=== PATIENT | male | born 1970 | race African-American/Black ===

== ENCOUNTER 2022-11-23 10:51 | Outpatient (AMB) | payer OTHER, SELFPAY ==
[2022-11-23 11:12] VITALS: BP 108/68; PULSE 97; RESP 12; TEMP 36.4; O2SAT 99; BMI 20.3
--- NOTE | 2022-11-23 11:12 | MHC.PC.OV ---
Vital Signs 11/23/22 11:12 Height 6 ft 2 in Weight 158 lb BMI 20.3 BP 108/68 Blood Pressure Location Lt brachial Position Sitting Respiration 12 Pulse 97 Pulse Source Pulse Oximeter Temp 97.5 F Temp Source Temporal Artery Scan Pulse Oximetry (%) 99 Oxygen Delivery Method Room Air Intake Visit Reasons: New patient-requesting physical Intake Note: Patient states that he was seen at [facility] for lower back pain, Patient states that he was told that he is missing the tissue inbetween the joints. Patient is currently seeing PT and PT states that it is more of a muscle problem but patient states otherwise. Patient's states that she noticed that patient has been more down and not himself due to the back pain holding him back and restricting him from from doing day to day activities. Patient states that he also has blood in stool. Patients states that his stool has been really loose and that patient uses the bathroom frequently. Patient states that when he is laying down the pain travels to his chest. Patient states that he has been experiencing hot flashes even when in the AC and has to take a cool shower just to cool down. Patient is also interested in stopping his smoking habit. [employer] Interpreter Required: No Accompanied by: Spouse Allergies lactose Adverse Reaction (Intermediate, Verified 11/23/22 11:45) Gastrointestinal Upset Medication List - Last Reconciled 11/23/22 by Diana Cronin CNP lidocaine HCl 4% 1 patch topical TID PRN meloxicam submicronized 5 mg PO DAILY Tobacco use date assessed: 11/23/22 Dental Screening Dental Screen Date: 11/23/22 Did you have a dental visit in the last 12 months?: No Did you have a dental problem in the last 6 months where you did not have access to dental care?: No Was dental information given to patient?: Yes HPI HPI Comments History of Present Illness Details 52-year-old male presents to [facility] care. He notes he has been seen by a PCP in the past 15 years. He states his last blood work was 8-9 years ago. He has past medical history significant for chronic low back pain. He notes the pain is intermittent and has been present for the past 8 years. 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 He denies injury, fall, or trauma. No tingling, numbness, loss of sensation, or loss of bowel or bladder functions. He was evaluated and treated at [facility] for back pain on 10/18/2022. X-ray revealed L5-S1 anterolisthesis. He started physical therapy 2 weeks ago and has been going twice weekly. He is scheduled to have 6 weeks of physical therapy. He denies formal diagnosis of anxiety and depression but admits to feeling anxious and depressed. He reports occasional dark red blood in his stool with associated abdominal pain for the past 4 years. He reports loose stool. He reports occasional constipation. He notes he started drinking alcohol heavily at age 11 and stopped a year ago. He reports history of cigarette smoking for several years and notes he currently smokes 15 cigarettes daily. He states he has never had colonoscopy. [facility] Medical History (Updated 11/23/22 @ 14:31 by Diana Cronin CNP) Back disorder Depression High blood pressure Surgical History (Updated 11/23/22 @ 11:31 by Talisha Maier MA) No pertinent past surgical history Family History (Updated 11/23/22 @ 11:37 by Talisha Maier MA) Sister High blood pressure Diabetes Social History Housing: Apartment Patient Tobacco Use Status: Current everyday Tobacco user Cigarette Packs Per Day: 1 Cigarettes Per Day: 15 Years Smoked: 29 e-Cigarette/Vaping Use: Never Used service: No Current occupational status: unemployed Cognitive needs: No Hearing needs: No Vision needs: No Questionnaire PHQ-9 Over the last 2 weeks, how often have you been bothered by any of the following problems? 1. Little interest or pleasure in doing things: several days 2. Feeling down, depressed, or hopeless: not at all 3. Trouble falling or staying asleep, or sleeping too much: nearly every day 4. Feeling tired or having little energy: nearly every day 5. Poor appetite or overeating: not at all 6. Feeling bad about yourself - or that you are a failure or have let yourself or your family down: nearly every day 7. Trouble concentrating on things, such as reading the newspaper or watching television: several days 8. Moving or speaking so slowly that other people could have noticed. Or the opposite - being so fidgety or restless that you have been moving around a lot more than usual: not at all 9. Thoughts that you would be better off or of hurting yourself in some way: not at all Total score: 11 Depression Screening Interpretation: Positive Depression Screening Follow-up: Existing condition and New Medication prescribed Source: Developed by Drs. Percy Hallman, Virgie Bowen, Leonardo Hernandez and colleagues, with an educational radha from [employer]. Thrive Questionnaire Date Thrive assessed: 11/23/22 I am a: Patient What is your living situation today?: I have a steady place to live Within the past 12 months, did the food you bought not last and you didn't have the money to get more?: Sometimes True Within the past 12 months, did you worry whether your food would run out before you got money to buy more?: Sometimes True Do you have trouble paying for medicines?: Yes Do you have trouble getting transportation to medical appointments?: No Do you have trouble paying your heating and electricity bill?: Yes Do you have trouble taking care of your child, family member or friend?: No Do you have trouble with day-to-day activities such as bathing, preparing meals, shopping, managing finances, etc.?: No Are you currently unemployed and looking for a job?: No Are you interested in more education?: No Please select the resources that you would like help with: Food, Paying for medicine and Utilities Currently or been in a relationship where the following occur: no concerns reported AUDIT C Alcohol Use Questionnaire (AUDIT-C) 1. How often do you have a drink containing alcohol?: Never 3. How often do you have six or more drinks on one occasion?: Never Total Score: 0 NICHOLE-7 AMB Questionnaire NICHOLE-7 Date NICHOLE - 7 assessed: 11/23/22 Feeling nervous, anxious, or on edge: 1 = Several days Not being able to stop or control worryin = Several days Worrying too much about different things: 1 = Several days Trouble relaxin = Several days Being so restless that it is hard to sit still: 0 = Not at all Becoming easily annoyed or irritable: 1 = Several days Feeling afraid as if something awful might happen: 0 = Not at all Total NICHOLE-7 score (0-4 normal; 5-9 mild; 10-14 moderate; 15-21 severe): 5 Source: Developed by Virgie Francis, Leonardo Hernandez and colleagues, with an educational radha from [employer]. Review of Systems Const Details: Const Denies chills, Denies fatigue, Denies fever(s), Denies headache(s) and Denies weakness ENT Denies dizziness and Denies headache(s) Card Denies chest pain, Denies lightheadedness, Denies dyspnea and Denies other (Palpitations) Resp Denies cough, Denies dyspnea, Denies wheezing and Denies other ( shortness of breath) GI Reports abdominal pain, reports bloody stool, Denies hematochezia, Denies change in bowel habits, Denies dyspepsia and Denies nausea Denies hematuria and Denies dysuria Musc Reports as per HPI Skin/Breast Denies rash, Denies unusual bruising and Denies wounds Neuro Denies abnormal gait, Denies dizziness, Denies headache(s), Denies memory loss, Denies numbness, Denies Sensory deficit (Neuro), Denies tingling and Denies weakness Psych Reports anxiety, reports depression, Denies memory loss Endo Denies cold intolerance, Denies fatigue, Denies heat intolerance, Denies polydipsia and Denies polyuria Aller/Immun Denies wheezing Physical exam (Primary Care) Vital Signs: Last Vital Signs Temp 97.5 F 11/23/22 11:12 Pulse 97 11/23/22 11:12 Resp 12 11/23/22 11:12 BP 108/68 11/23/22 11:12 Pulse Ox 99 11/23/22 11:12 Oxygen Delivery Method Room Air 11/23/22 11:12 BMI result Body Mass Index 20.3 Tobacco/Smoking Status: Tobacco use Status Tobacco use date assessed 11/23/22 11/23/22 11:36 Patient Tobacco Use Status Current everyday Tobacco 11/23/22 11:36 e-Cigarette/Vaping Use Never Used 11/23/22 11:36 PHQ-9: PHQ-9 Score PHQ-9: Total score 11 11/23/22 11:36 Depression Screening Interpretation: Positive Depression Screening Follow-up: Existing condition and New Medication prescribed Thrive Assessment: Date of Thrive Assessment Date Thrive assessed 11/23/22 11/23/22 11:36 Currently or been in a relationship where the following occur: no concerns reported Const Other: General: no acute distress and well developed Nutritional Appearance: well nourished Orientation/consciousness: patient oriented x3 [facility] Head: Yes normocephalic and Yes atraumatic Eyes General: appearance normal, both eyes and all related structures Pupils: Equal, round and reactive pupils present EOM: EOMs intact bilaterally Resp Effort & Inspection: normal respiratory effort Auscultation: clear to auscultation bilaterally Cardio Rate: regular rate Rhythm: regular rhythm Heart sounds: S1 normal heart sound present, S2 normal heart sound present, no gallops, no murmurs and no rubs GI Palpation (GI): No Abdominal aortic bruit present, Soft to palpation, tender epigastric region, No hepatosplenomegaly present and No Rebound tenderness present Auscultation: normal bowel sounds General: Yes no CVA tenderness Back/Spine/Pelvis Back: no CVA tenderness Cervical Spine: cervical ROM normal and No Cervical spine tenderness Thoracic/Lumbar Spine: thoraco-lumbar ROM normal, No pain with thoraco-lumbar ROM, No thoracic spinal tenderness and lumbar spinal tenderness Extrem General: Yes normal to inspection, No edema and No calf tenderness Skin General: warm and dry. Normal skin color. Normal skin turgor Lesions: no lesions Rashes: no rashes Trauma: no lacerations or abrasions Wounds: no wounds Nails: normal Neuro General: patient oriented x3, gait normal and no focal neuro deficit Cranial nerves: Yes Equal, round and reactive pupils present Cognition (Neuro): normal cognition Gait exam (Neuro): Normal gait present Sensory Exam: No Sensory deficit (Neuro) Psych Appearance: grossly normal Affect: normal affect Attitude: cooperative Thought process: Normal thought process present Assessment and Plan Assessment & Plan (1) Chronic low back pain: Code(s): M54.50 - Low back pain, unspecified; G89.29 - Other chronic pain Plan: X-ray from outside facility revealed L5-S1 anterolisthesi Lumbar spinal tenderness Duloxetine ordered. Take as prescribed Continue with physical therapy Warm/cool compresses encouraged Referred to Ortho Follow-up in 1 month or return sooner with worsening or new symptoms Verbalized understanding and agreed with treatment plan. (2) Anxiety and depression: Code(s): F41.9 - Anxiety disorder, unspecified; F32.A - Depression, unspecified Plan: PHQ-9 and NICHOLE-7 scores revealed moderate depression and mild anxiety respectively Anxiety and depression symptoms may be attributed to chronic pain Duloxetine ordered. Take as prescribed Advised to stop taking gabapentin Follow-up within 1 month Return sooner with worsening or new symptoms Verbalized understanding and agreed with treatment plan (3) Abdominal pain: Code(s): R10.9 - Unspecified abdominal pain Plan: Reports occasional dark red blood in his stool with associated abdominal pain for the past 4 years. He reports loose stool. He reports occasional constipation. Pain to palpation of the epigastric region, likely muscular pain although gastritis is possible Differential diagnosis for bloody stool includes constipation, hemorrhoids, Crohn's disease, ulcerative colitis, and colon cancer Omeprazole ordered. Take as prescribed Advised to stop taking meloxicam to prevent worsening GI bleed Adequate hydration in healthy diet including fruits and vegetables encouraged to prevent constipation. May also increase fiber in his diet Referred to GI Colonoscopy referral made Return with new or worsening symptoms Verbalized understanding and agreed with treatment plan. (4) Bloody stools: Code(s): K92.1 - Melena Plan: As above (5) Constipation: Code(s): K59.00 - Constipation, unspecified Plan: As above (6) Colon cancer screening: Code(s): Z12.11 - Encounter for screening for malignant neoplasm of colon Plan: He states he has never had colonoscopy Colonoscopy referral made (7) Laboratory tests ordered as part of a complete physical exam (CPE): Code(s): Z00.00 - Encounter for general adult medical examination without abnormal findings Plan: Fasting labs ordered as part of a complete physical exam. Advised to fast for at least 10 hours before getting labs drawn. May drink water Verbalized understanding and agreed with treatment plan. Orders: Orders Comprehensive [place]. Panel Fast Today Z00.00 - Encounter for general adult medical examination without abnormal findings Lipid Panel Today Z00.00 - Encounter for general adult medical examination without abnormal findings PSA, Ultra Sensitive Today Z00.00 - Encounter for general adult medical examination without abnormal findings TSH reflex Free T4 Today Z00.00 - Encounter for general adult medical examination without abnormal findings Complete Blood Count Auto Diff Today Z00.00 - Encounter for general adult medical examination without abnormal findings UA CC w/rflx Micro + Cult Today Z00.00 - Encounter for general adult medical examination without abnormal findings Referrals Orthopedics Referral G89.29 - Other chronic pain, M54.50 - Low back pain, unspecified Medications: New duloxetine 60 mg PO DAILY 30 days 30 caps 2RF lidocaine 5% leave on most painful area for up to 12 hrs 1 patch topical DAILY 15 ea 0RF Coding Level of Care Code New Pt Level 4 (03957) Diagnoses Chronic low back pain M54.50; G89.29 Anxiety and depression F41.9; F32.A Abdominal pain R10.9 Bloody stools K92.1 Constipation K59.00 Colon cancer screening Z12.11 Laboratory tests ordered as part of a complete physical exam (CPE) Z00.00
== END 2022-11-23 12:26 | disposition home or self-care (01) ==
PROVIDERS: PCP Nurse Practitioner Family; Visit Provider Nurse Practitioner Family
DX: M54.50 Low back pain, unspecified (principal); G89.29 Other chronic pain; F41.9 Anxiety disorder, unspecified; F32.A Depression, unspecified; R10.9 Unspecified abdominal pain; K92.1 Melena; K59.00 Constipation, unspecified; Z12.11 Encounter for screening for malignant neoplasm of colon; Z00.00 Encounter for general adult medical examination without abnormal findings
CPT/HCPCS: 99204

== ENCOUNTER 2022-12-26 09:37 | Outpatient (AMB) | payer OTHER, SELFPAY ==
--- NOTE | 2022-12-26 09:40 | MHC.PC.OV ---
Vital Signs 12/26/22 09:41 Height 6 ft 2 in Weight 167 lb 6 oz BMI 21.5 BP 124/72 Blood Pressure Location Rt brachial Position Sitting Respiration 13 Pulse 94 Pulse Source Pulse Oximeter Temp 97.8 F Temp Source Temporal Artery Scan Pulse Oximetry (%) 98 Oxygen Delivery Method Room Air Intake Visit Reasons: f/u LBP, labs review White Metal Corrosion Proofer Required: No Accompanied by: Self / Same As Patient Allergies lactose Adverse Reaction (Intermediate, Verified 12/26/22 09:47) Gastrointestinal Upset Tobacco use date assessed: 11/23/22 Dental Screening Dental Screen Date: 12/26/22 Did you have a dental visit in the last 12 months?: No Did you have a dental problem in the last 6 months where you did not have access to dental care?: No Was dental information given to patient?: Yes HPI HPI Comments History of Present Illness Details 52-year-old male presents for low back pain, anxiety, depression, and labs review follow-up. He established care on 11/23/2022. Before that, the last time he was evaluated by PCP was 15 years ago. Routine labs were ordered. Duloxetine was prescribed for chronic low back pain and anxiety and depression. He noted he has been doing PT of his back twice weekly and scheduled for 6 weeks therapy. He reports improved anxiety symptoms. He denies depression. He notes that he has been taking Duloxetine as prescribed and Tylenol with some relief. He notes that he completed the course of PT. He has a appointment with emilie Montesinos, this . No tingling, numbness, or loss of sensation. [facility] Medical History Depression Back disorder High blood pressure Surgical History No pertinent past surgical history Family History Sister High blood pressure Diabetes Social History Housing: Apartment Patient Tobacco Use Status: Current everyday Tobacco user Cigarette Packs Per Day: 1 Cigarettes Per Day: 15 Years Smoked: 29 e-Cigarette/Vaping Use: Never Used service: No Current occupational status: unemployed Cognitive needs: No Hearing needs: No Vision needs: Yes Questionnaire PHQ-9 Over the last 2 weeks, how often have you been bothered by any of the following problems? 1. Little interest or pleasure in doing things: not at all 2. Feeling down, depressed, or hopeless: not at all 3. Trouble falling or staying asleep, or sleeping too much: several days 4. Feeling tired or having little energy: several days 5. Poor appetite or overeating: several days 6. Feeling bad about yourself - or that you are a failure or have let yourself or your family down: several days 7. Trouble concentrating on things, such as reading the newspaper or watching television: several days 8. Moving or speaking so slowly that other people could have noticed. Or the opposite - being so fidgety or restless that you have been moving around a lot more than usual: not at all 9. Thoughts that you would be better off or of hurting yourself in some way: not at all Total score: 5 Depression Screening Interpretation: Positive Depression Screening Follow-up: Existing condition and In treatment Depression Screening Done: Yes Source: Developed by Drs. Percy Hallman, Virgie Bowen, Leonardo Hernandez and colleagues, with an educational radha from [employer] Thrive Questionnaire Date Thrive assessed: 11/23/22 NICHOLE-7 AMB Questionnaire NICHOLE-7 Date NICHOLE - 7 assessed: 12/26/22 Feeling nervous, anxious, or on edge: 1 = Several days Not being able to stop or control worryin = Several days Worrying too much about different things: 1 = Several days Trouble relaxin = Several days Being so restless that it is hard to sit still: 1 = Several days Becoming easily annoyed or irritable: 1 = Several days Feeling afraid as if something awful might happen: 1 = Several days Total NICHOLE-7 score (0-4 normal; 5-9 mild; 10-14 moderate; 15-21 severe): 7 Source: Developed by Drs. Percy Hallman, Virgie Bowen, Leonardo Hernandez and colleagues, with an educational radha from [employer]. Review of Systems Const Details: Const Denies chills, Denies fatigue, Denies fever(s), Denies headache(s) and Denies weakness ENT Denies dizziness and Denies headache(s) Card Denies chest pain, Denies lightheadedness, Denies dyspnea and Denies other (Palpitations) Resp Denies cough, Denies dyspnea, Denies wheezing and Denies other ( shortness of breath) GI Denies abdominal pain, Denies melena, Denies hematochezia, Denies change in bowel habits, Denies dyspepsia and Denies nausea Denies hematuria and Denies dysuria Musc Reports as per HPI Skin/Breast Denies rash, Denies unusual bruising and Denies wounds Neuro Denies abnormal gait, Denies dizziness, Denies headache(s), Denies memory loss, Denies numbness, Denies Sensory deficit (Neuro), Denies tingling and Denies weakness Psych Denies anxiety, Denies depression, Denies memory loss Endo Denies cold intolerance, Denies fatigue, Denies heat intolerance, Denies polydipsia and Denies polyuria Aller/Immun Denies wheezing Physical exam (Primary Care) Vital Signs: Last Vital Signs Temp 97.8 F 12/26/22 09:41 Pulse 94 12/26/22 09:41 Resp 13 12/26/22 09:41 BP 124/72 12/26/22 09:41 Pulse Ox 98 12/26/22 09:41 Oxygen Delivery Method Room Air 12/26/22 09:41 BMI result Body Mass Index 21.5 Tobacco/Smoking Status: Tobacco use Status Tobacco use date assessed 11/23/22 12/26/22 09:49 Patient Tobacco Use Status Current everyday Tobacco 12/26/22 09:49 e-Cigarette/Vaping Use Never Used 12/26/22 09:49 Depression Screening Interpretation: Positive Depression Screening Follow-up: Existing condition and In treatment Thrive Assessment: Date of Thrive Assessment Date Thrive assessed 11/23/22 12/26/22 09:49 Const Other: General: no acute distress and well developed Nutritional Appearance: well nourished Orientation/consciousness: patient oriented x3 [facility] Head: Yes normocephalic and Yes atraumatic Eyes General: appearance normal, both eyes and all related structures Pupils: Equal, round and reactive pupils present EOM: EOMs intact bilaterally Resp Effort & Inspection: normal respiratory effort Auscultation: clear to auscultation bilaterally Cardio Rate: regular rate Rhythm: regular rhythm Heart sounds: S1 normal heart sound present, S2 normal heart sound present, no gallops, no murmurs and no rubs GI Palpation (GI): No Abdominal aortic bruit present, Soft to palpation, nontender, No hepatosplenomegaly present and No Rebound tenderness present Auscultation: normal bowel sounds General: Yes no CVA tenderness Back/Spine/Pelvis Back: no CVA tenderness Cervical Spine: cervical ROM normal and No Cervical spine tenderness Thoracic/Lumbar Spine: thoraco-lumbar ROM normal, No pain with thoraco-lumbar ROM, No thoracic spinal tenderness and lumbar spinal tenderness Extrem General: Yes normal to inspection, No edema and No calf tenderness Negative straight leg raises bilaterally Skin General: warm and dry. Normal skin color. Normal skin turgor Lesions: no lesions Rashes: no rashes Trauma: no lacerations or abrasions Wounds: no wounds Nails: normal Neuro General: patient oriented x3, gait normal and no focal neuro deficit Cranial nerves: Yes Equal, round and reactive pupils present Cognition (Neuro): normal cognition Gait exam (Neuro): Normal gait present Sensory Exam: No Sensory deficit (Neuro) Psych Appearance: grossly normal Affect: normal affect Attitude: cooperative Thought process: Normal thought process present Assessment and Plan Assessment & Plan (1) Chronic low back pain: Code(s): M54.50 - Low back pain, unspecified; G89.29 - Other chronic pain Plan: Reports chronic low back pain Recently completed 6 weeks course of physical therapy Lumbar spine tenderness to palpation Tylenol and duloxetine providing some relief He has an appointment with later Ortho this week Continue to take duloxetine as prescribed and Tylenol as needed Follow-up with orthopedics as planned Encouraged to get fasting blood work done before next visit Follow-up in 1 month for complete physical exam and labs review Return with worsening or new symptoms Verbalized understanding and agreed with treatment plan. (2) Anxiety and depression: Code(s): F41.9 - Anxiety disorder, unspecified; F32.A - Depression, unspecified Plan: PHQ-9 and NICHOLE-7 scores revealed mild depression and anxiety respectively Reports significant improvement with duloxetine Continue to take duloxetine as prescribed Routine exercise encouraged Return with new or worsening symptoms Verbalized understanding and agreed with treatment plan. Coding Level of Care Code Est Pt Level 3 (68267) Diagnoses Chronic low back pain M54.50; G89.29 Anxiety and depression F41.9; F32.A
[2022-12-26 09:41] VITALS: BP 124/72; PULSE 94; RESP 13; TEMP 36.6; O2SAT 98; BMI 21.5
== END 2022-12-26 10:08 | disposition home or self-care (01) ==
PROVIDERS: PCP Nurse Practitioner Family; Visit Provider Nurse Practitioner Family
DX: M54.50 Low back pain, unspecified (principal); G89.29 Other chronic pain; F41.9 Anxiety disorder, unspecified; F32.A Depression, unspecified
CPT/HCPCS: 99213

== ENCOUNTER 2022-12-28 08:00 | Outpatient (REF) | payer OTHER, SELFPAY ==
[2023-01-03 20:24] LABS: PSA, Ultra Sensitive 1.56 ng/mL
== END 2022-12-28 08:01 | disposition home or self-care (01) ==
LOC: HO.WFDLDS 08:00
PROVIDERS: Visit Provider Nurse Practitioner Family
DX: Z00.00 Encounter for general adult medical examination without abnormal findings (principal)
CPT/HCPCS: 36415; 80053; 80061; 84153; 84443; 85025

== ENCOUNTER 2022-12-29 11:09 | Outpatient (AMB) | payer OTHER, SELFPAY ==
[2022-12-29 11:22] VITALS: BMI 22.1
--- NOTE | 2022-12-29 11:22 | MHC.OFFVIS ---
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 No injury he can recall. 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 States he has radiating pain down his left leg. At times his leg gives out when walking up stairs. States he completed 10 sessions of P.T about 1 month ago with improvement. Adela states he was not consistent with his exercise at home. Allergies lactose Adverse Reaction (Intermediate, Verified 12/29/22 11:29) Gastrointestinal Upset Medication List - Last Reconciled 12/29/22 by Sumi Gupta MD acetaminophen (Tylenol Extra Strength) 500 mg PO Q6H PRN duloxetine 60 mg PO DAILY 30 days lidocaine 5% 1 patch topical DAILY HPI HPI Comments History of Present Illness Details Chronic back pain. Reviewed notes from ER, visited 10/19/22. Patient was prescribed gabapentin. Xray done reported spondylolisthesis L5-S1. PT notes said patient was improving. Also reviewed PCP notes, appears to be chronic back pain with history of depression. Prescribed duloxetine. Chronic for few years. Points to left thoracic down to left buttocks. On/off would wrap around the stomach and sometimes to knee. Knee feels like it would give. Not to foot. Hard for him to sit down. Numbness on same area in the back and stomach, not to leg or foot. No MRI yet. Treatment done so far: NSAIDs therapy - finished [facility] Medical History Depression Back disorder High blood pressure Surgical History No pertinent past surgical history Family History Sister High blood pressure Diabetes Social History Housing: Apartment Patient Tobacco Use Status: Current everyday Tobacco user Cigarette Packs Per Day: 1 Cigarettes Per Day: 15 Years Smoked: 29 e-Cigarette/Vaping Use: Never Used service: No Current occupational status: unemployed Cognitive needs: No Hearing needs: No Vision needs: Yes Review of Systems Const All systems reviewed & are unremarkable except as noted in HPI and below Physical Exam Vital Signs: BMI result Body Mass Index 22.1 Constitutional: Patient appears to be in no acute distress, well nourished and well developed. Patient was appropriately conversant and oriented. Good historian. MSK: No specific abnormalities found on inspection of the spine and all extremities. Tight left thoracic paraspinals with tenderness. Lumbar ROM was full. Bilateral hip, knee and ankle ROM WNL. No ligamentous laxity or crepitance. No increased effusion. Straight-leg raising test negative. Favor positive left side. Strength is 5/5 in all muscle groups tested. No increased tone noted. Neurological: Neurologic examination of the upper and lower extremities was nonfocal with intact sensation, muscle stretch reflexes and without focal motor deficits . Lubin?s negative bilaterally. Babinski was down going bilaterally. Clonus was negative. Gait is non-antalgic without loss of balance. No footdrop. Results Reviewed Results Reviewed: I independently reviewed the results of the following: [ ] I reviewed records from the following: As above Assessment & Plan Assessment & Plan (1) Myofascial pain: Code(s): M79.18 - Myalgia, other site Plan: Tightness over paraspinals can give him the kind of pain that he describes. (2) Thoracic back pain: Code(s): M54.6 - Pain in thoracic spine Qualifiers: Back pain laterality: left Chronicity: chronic Qualified Code(s): M54.6 - Pain in thoracic spine; G89.29 - Other chronic pain Plan: I have concerns about thoracic radiculopathy given symptoms of thoracic pain that wraps around abdomen and into the left groin. That is also suggestive of L3 radiculitis. Milder symptoms to the left big toe suggestive of left L5 radiculitis. Plan We will obtain thoracic x-ray today to look at disc spaces. Thoracic x-ray result along with lumbar x-ray done previously will help me determine whether this is a thoracic versus lumbar radiculopathy. He would still need further imaging such as MRI. He has done conservative management including PT, without relief, therefore it would be reasonable to go further with MRI and maybe later on for injections. Assessment and plan discussed with patient, and patient was agreeable. All questions were answered thoroughly. Follow-up after MRI. Sumi Gupta MD, SOPHIE Board Certified, [place] [employer] and Rehabilitation (ABPMR) Board Certified, [place] Board of Electrodiagnostic Medicine (ABEM) Coding Level of Care Code New Pt Level 4 (79063) Diagnoses Myofascial pain M79.18 Chronic left-sided thoracic back pain M54.6; G89.29 Back pain laterality: left Chronicity: chronic
== END 2022-12-30 08:51 | disposition home or self-care (01) ==
PROVIDERS: PCP Nurse Practitioner Family; Visit Provider Physical Medicine & Rehabilitation
DX: M79.18 Myalgia, other site (principal); M54.6 Pain in thoracic spine; G89.29 Other chronic pain
CPT/HCPCS: 99204

== ENCOUNTER 2022-12-29 11:09 | Outpatient (REF) | payer OTHER, SELFPAY ==
--- NOTE | ~2022-12-29 | XR_ITS ---
EXAMINATION: XR THORACIC SPINE CLINICAL INFORMATION: Pain. COMPARISON: None available. TECHNIQUE: 3 AP and lateral views of the thoracic spine were obtained. FINDINGS: There is no fracture or bone destruction seen and the vertebral alignment is normal. There is no disc space narrowing. There is no abnormality of the paraspinal soft tissues. XR/XR thoracic spine 2V IMPRESSION: Unremarkable examination.
== END 2022-12-29 11:10 | disposition home or self-care (01) ==
LOC: HO.HOSX 11:09
PROVIDERS: PCP Nurse Practitioner Family; Visit Provider Physical Medicine & Rehabilitation
DX: M54.50 Low back pain, unspecified (principal); M79.18 Myalgia, other site; M54.6 Pain in thoracic spine; G89.29 Other chronic pain; Z79.899 Other long term (current) drug therapy
CPT/HCPCS: 72070

== ENCOUNTER 2023-01-25 10:26 | Outpatient (AMB) | payer OTHER, SELFPAY ==
--- NOTE | 2023-01-25 10:43 | A.OFFPC_ITS ---
Vital Signs 01/25/23 10:44 Height 6 ft 2 in Weight 172 lb BMI 22.1 BP 98/54 L Blood Pressure Location Lt brachial Position Sitting Respiration 12 Pulse 73 Pulse Source Pulse Oximeter Temp 98.7 F Temp Source Oral Pulse Oximetry (%) 99 Oxygen Delivery Method Room Air Intake Visit Reasons: f/u CPE, labs review Intake Note: Patient is here to follow up on his labs, drawn on 12/28/22. Patient shares he has a concern for a pain in his left hand radiating to the elbow x7 days. 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 He has history of chronic back pain, anxiety, and depression. He is followed by [facility] physiatry for his chronic back pain. He admits to taking his medications as prescribed. He reports low back pain at this time. He denies tingling, numbness, and loss of sensation. He notes he has been smoking a pack of cigarettes daily for the past 41 years. He requests medication treatment for smoking cessation. He has never had a LDCT lung screening. He denies drinking alcohol. States he has never had a colonoscopy done. He notes he has not had the shingles vaccines. [facility] Medical History Depression Back disorder High blood pressure Surgical History No pertinent past surgical history Family History Sister High blood pressure Diabetes Social History Housing: Apartment Patient Tobacco Use Status: Current everyday Tobacco user Cigarette Packs Per Day: 1 Cigarettes Per Day: 20 Years Smoked: 41 e-Cigarette/Vaping Use: Never Used service: No Current occupational status: unemployed Cognitive needs: No Hearing needs: No Vision needs: Yes Questionnaire Thrive Questionnaire Date Thrive assessed: 11/23/22 NICHOLE-7 AMB Questionnaire NICHOLE-7 Date NICHOLE - 7 assessed: 12/26/22 Source: Developed by Drs. Percy Hallman, Virgie Bowen, Leonardo Hernandez and colleagues, with an educational rdaha from [employer]. Review of Systems Const Details: Denies chills, Denies fatigue, Denies fever(s), Denies headache(s) and Denies weakness HEENT Denies change in vision, Denies dizziness, Denies headache(s), Denies hearing loss, Denies nasal congestion, Denies sinus pain, Denies sinus pressure and Denies sore throat Card Denies chest pain, Denies lightheadedness, Denies dyspnea and Denies other (palpitations) Resp Denies cough, Denies dyspnea and Denies wheezing GI Denies abdominal pain, Denies melena, Denies hematochezia, Denies change in bowel habits, Denies dyspepsia and Denies nausea Denies hematuria and Denies dysuria Musc Reports as per HPI Skin/Breast Denies rash, Denies unusual bruising and Denies wounds Neuro Denies abnormal gait, Denies dizziness, Denies headache(s), Denies memory loss, Denies numbness, Denies Sensory deficit (Neuro), Denies tingling and Denies weakness Psych Denies anxiety, Denies depression and Denies memory loss Endo Denies cold intolerance, Denies fatigue, Denies heat intolerance, Denies polydipsia and Denies polyuria Maurisio/Lymph Denies easy bleeding and Denies easy bruising Aller/Immun Denies wheezing Physical exam (Primary Care) Vital Signs: Last Vital Signs Temp 98.7 F 01/25/23 10:44 Pulse 73 01/25/23 10:44 Resp 12 01/25/23 10:44 BP 98/54 L 01/25/23 10:44 Pulse Ox 99 01/25/23 10:44 Oxygen Delivery Method Room Air 01/25/23 10:44 BMI result Body Mass Index 22.1 Tobacco/Smoking Status: Tobacco use Status Tobacco use date assessed 11/23/22 01/25/23 10:50 Patient Tobacco Use Status Current everyday Tobacco 01/25/23 10:50 e-Cigarette/Vaping Use Never Used 01/25/23 10:50 Thrive Assessment: Date of Thrive Assessment Date Thrive assessed 11/23/22 01/25/23 10:50 Const Other: General: no acute distress, well developed, alert and awake Nutritional Appearance: well nourished Orientation/consciousness: patient oriented x3 HENMT Head: Yes normocephalic and Yes atraumatic Ears: hearing grossly normal bilaterally and TM's normal bilaterally General nose exam: Normal external nose present and Normal nares present Mouth: Normal oral and palatal mucosa present and moist mucous membranes Teeth and gingiva: dentition normal Throat: Yes oropharynx normal Eyes Pupils: Equal, round and reactive pupils present and Pupil accommodation reflex normal EOM: EOMs intact bilaterally Neck Neck: Yes normal visual inspection, Yes no lymphadenopathy and Yes trachea midline Thyroid: Thyroid normal Carotids: no bruits Lymphatic: no lymphadenopathy noted Chest Chest palpation & inspection: normal inspection of the chest Resp Effort & Inspection: normal respiratory effort Auscultation: clear to auscultation bilaterally Cardio Rate: regular rate Rhythm: regular rhythm Heart sounds: S1 normal heart sound present, S2 normal heart sound present, no gallops, no murmurs and no rubs Bruits: no abdominal aortic bruits and no carotid bruits GI Palpation (GI): No Abdominal aortic bruit present, Soft to palpation, nontender, No hepatosplenomegaly present and No Rebound tenderness present Auscultation: normal bowel sounds General: Yes no CVA tenderness Back/Spine/Pelvis Back: no CVA tenderness Cervical Spine: cervical ROM normal and No Cervical spine tenderness Thoracic/Lumbar Spine: thoraco-lumbar ROM normal, No pain with thoraco-lumbar ROM, No thoracic spinal tenderness and lumbar spinal tenderness Skin General: warm and dry. Normal skin color. Normal skin turgor Lesions: no lesions Rashes: no rashes Trauma: no lacerations or abrasions Wounds: no wounds Nails: normal Neuro General: patient oriented x3, gait normal and CN's II-XI intact bilaterally Cranial nerves: Yes Equal, round and reactive pupils present Cognition (Neuro): normal cognition Gait exam (Neuro): Normal gait present Motor exam (neuro): 5/5 motor strength present throughout Sensory Exam: No Sensory deficit (Neuro) Deep tendon reflexes (DTR's): Right patellar reflex intensity grade: 2+ and Left patellar reflex intensity grade: 2+ Extrem General: Yes normal to inspection, No edema and No calf tenderness Negative straight leg raise bilaterally Psych Appearance: grossly normal Affect: normal affect Attitude: cooperative Thought process: Normal thought process present Assessment and Plan Assessment & Plan (1) Normal physical examination, routine: Code(s): Z00.00 - Encounter for general adult medical examination without abnormal findings Plan: No significant physical restrictions or limitations noted He will follow-up in 3 months for anxiety, depression, and smoking cessation Return sooner with new or worsening symptoms Verbalized understanding and agreed with treatment plan. (2) Chronic low back pain: Code(s): M54.50 - Low back pain, unspecified; G89.29 - Other chronic pain Plan: Reports chronic low back pain Lumbar spine tenderness Continue current treatment regimen Follow-up with physiatry as planned Return with worsening or new symptoms Verbalized understanding and agreed with treatment plan. (3) Elevated LDL cholesterol level: Code(s): E78.00 - Pure hypercholesterolemia, unspecified Plan: Recent blood work reviewed with the patient. Unremarkable results except for slightly elevated LDL, 134 Advised to limit foods high in saturated fat and avoid foods high trans fat Routine exercise encouraged Verbalized understanding and agreed with treatment plan (4) Smoking greater than 40 pack years: Code(s): F17.210 - Nicotine dependence, cigarettes, uncomplicated Plan: He notes he has been smoking a pack of cigarettes daily for the past 41 years. He requests medication treatment for smoking cessation. He has never had a LDCT lung screening. Smoking cessation encouraged Nicotine patch ordered. Use as prescribed. Report adverse reactions immedi ately. LDCT ordered for lung cancer screening Return with symptoms or concerns Verbalized understanding and agreed with treatment plan. (5) Screening for lung cancer: Code(s): Z12.2 - Encounter for screening for malignant neoplasm of respiratory organs Plan: LDCT ordered for lung cancer screening (6) Colon cancer screening: Code(s): Z12.11 - Encounter for screening for malignant neoplasm of colon Plan: He notes he has never had a colonoscopy Colonoscopy ordered (7) Vaccine counseling: Code(s): Z71.85 - Encounter for immunization safety counseling Plan: He notes he has never had the Shingrix vaccines. Instructed on importance of vaccination and encouraged to get the Shingrix vaccines. Verbalized understanding and agreed with plan. Orders: Referrals Gastroenterology Referral Z12.11 - Encounter for screening for malignant neoplasm of colon Medications: New nicotine Apply 21 mg patch q.d. x6 weeks, then apply 14 mg patch q.d. x2 weeks, then apply 7 mg patch q.d. x2 weeks. Stop cigarette use at treatment onset. 1 patch transdermal DAILY 10 weeks 70 ea 0RF Coding Level of Care Code Est Pt Prev Care 40-64y(18584) Diagnoses Normal physical examination, routine Z00.00 Chronic low back pain M54.50; G89.29 Elevated LDL cholesterol level E78.00 Smoking greater than 40 pack years F17.210 Screening for lung cancer Z12.2 Colon cancer screening Z12.11 Vaccine counseling Z71.85
[2023-01-25 10:44] VITALS: BP 98/54; PULSE 73; RESP 12; TEMP 37.1; O2SAT 99; BMI 22.1
== END 2023-01-25 11:31 | disposition home or self-care (01) ==
PROVIDERS: PCP Nurse Practitioner Family; Visit Provider Nurse Practitioner Family
DX: Z00.00 Encounter for general adult medical examination without abnormal findings (principal); M54.50 Low back pain, unspecified; G89.29 Other chronic pain; E78.00 Pure hypercholesterolemia, unspecified; F17.210 Nicotine dependence, cigarettes, uncomplicated; Z12.2 Encounter for screening for malignant neoplasm of respiratory organs; Z12.11 Encounter for screening for malignant neoplasm of colon; Z71.85 Encounter for immunization safety counseling
CPT/HCPCS: 99396